=== PATIENT | female | born 1980 | race African-American/Black ===

== ENCOUNTER 2019-03-23 05:45 | Emergency (ER) | payer MEDICAID ==
[~2019-03-23] VITALS: Ht 165.1 cm; Wt 139.0 kg
[2019-03-23] MEDS ORDERED: NITROGLYCERIN 0.4MG TABLET SL SL PRN (06:30)
[2019-03-23] MEDS ORDERED: ASPIRIN 81MG TABLET PO ONE (06:30)
[2019-03-23 06:58] LABS: BASOPHILS % 0.7 % (0.0-2.0); EOSINOPHILS % 0.1 % (0.0-5.0); HEMATOCRIT. 35.1 % (36.0-48.0); HEMOGLOBIN. 11.6 g/dL (12.0-16.0); LYMPHOCYTES % 20.4 % (20.0-50.0); MEAN CORPUSCULAR HEMOGLOBIN 26.9 pg (28.0-32.0); MEAN CORPUSCULAR VOLUME 81.2 fL (81.0-99.0); MEAN PLATELET VOLUME 8.7 fl (7.4-10.4); MONOCYTES % 9.5 % (2.0-8.0); NEUTROPHILS % 69.3 % (40.0-76.0); PLATELET 231 x1000/uL (130-400); RED BLOOD CELL COUNT 4.32 mill/uL (4.2-5.4); RED CELL DISTRIBUTION WIDTH 14.1 % (11.6-14.6)
[2019-03-23 07:03] LABS: HCG SCREEN NEGATIVE
[2019-03-23 07:05] LABS: CHLORIDE 103 mEq/L (98-107)
[2019-03-23 07:06] LABS: D-DIMER 0.43 mg/L FEU (<0.50); INR 1.1; PARTIAL THROMBOPLASTIN TIME 32.2 sec (23.4-31.0); PROTHROMBIN TIME 11.8 sec (9.6-11.0)
[2019-03-23 11:14] VITALS: BP 129/78
== END 2019-03-23 11:23 | disposition home or self-care (01) ==
LOC: ER 05:45
DX: R07.89 Other chest pain (principal); R42 Dizziness and giddiness; F11.10 Opioid abuse, uncomplicated
CPT/HCPCS: 36415; 71045; 80053; 81025; 83880; 84484; 84703; 85025; 85379; 85610; 85730; 93005; 99284; Z7610

== ENCOUNTER 2022-01-13 21:46 | Emergency (ER) | payer SELFPAY ==
[~2022-01-13] VITALS: Ht 165.1 cm; Wt 149.0 kg
[2022-01-14] MEDS ORDERED: SODIUM CHLORIDE 0.9% 1,000 ML IV ONE (00:15)
[2022-01-14] MEDS ORDERED: ONDANSETRON HCL 4MG/2ML INJ IV ONE (00:15)
[2022-01-14] MEDS ORDERED: MECLIZINE 25MG TABLET PO ONE (00:15)
[2022-01-14 01:20] LABS: CLARITY URINE CLEAR (CLEAR); COLOR URINE YELLOW (YELLOW); KETONES URINE TRACE (NEGATIVE); LEUKOCYTE ESTERASE URINE NEGATIVE (NEGATIVE); NITRITE URINE NEGATIVE (NEGATIVE); OCCULT BLOOD URINE NEGATIVE (NEGATIVE); PROTEIN URINE 1+ (NEGATIVE); SPECIFIC GRAVITY URINE 1.034 (1.005-1.030)
[2022-01-14 01:34] VITALS: BP 158/98
== END 2022-01-14 01:40 | disposition home or self-care (01) ==
LOC: ER 21:46
DX: R42 Dizziness and giddiness (principal); F11.10 Opioid abuse, uncomplicated
CPT/HCPCS: 81003; 96361; 96374; 99283; J2405; J7030; J8597

== ENCOUNTER 2022-04-27 18:09 | Emergency (ER) | payer SELFPAY ==
[~2022-04-27] VITALS: Ht 177.8 cm; Wt 106.0 kg
[2022-04-27] MEDS ORDERED: ACETAMINOPHEN 325MG TABLET PO ONE (19:00)
[2022-04-27 19:10] VITALS: BP 164/93
[2022-04-27] MEDS ORDERED: IBUP-2028 MT (19:49)
== END 2022-04-27 20:30 | disposition home or self-care (01) ==
LOC: ER 18:09
DX: U07.1 COVID-19 (principal); I10 Essential (primary) hypertension
CPT/HCPCS: 71045; 81025; 93005; 99283